=== PATIENT | male | born 1980 | race Caucasian/White ===

== ENCOUNTER 2017-05-19 23:37 | Emergency (ER) | payer OTHER ==
[~2017-05-19] VITALS: Ht 180.3 cm; Wt 88.5 kg
[2017-05-20 00:39] LABS: Acetaminophen < 2.0 ug/mL (10-30); Salicylate < 1.7 mg/dL (2.8-20.0)
[2017-05-20] MEDS ORDERED: HYDROmorphone HCL 2 MG/ML VL IV ONE (01:15)
[2017-05-20] MEDS ORDERED: ONDANSETRON HCL 4 MG/2 ML VIAL IV ONE (01:15)
[2017-05-20] MEDS ORDERED: TETANUS-DIPTH-ACEL PERTUSSIS 0.5ML SYRG IM ONE (01:30)
[2017-05-20 03:01] VITALS: BP 151/89
== END 2017-05-20 03:47 | disposition left against medical advice (07) ==
LOC: ER 23:49
DX: S01.21XA Laceration without foreign body of nose, initial encounter (principal); Z53.21 Procedure and treatment not carried out due to patient leaving prior to being seen by health care provider; Y09 Assault by unspecified means; Y93.89 Activity, other specified; Y92.89 Other specified places as the place of occurrence of the external cause
CPT/HCPCS: 36415; 70450; 70486; 73130; 80307; 80320; 80329; 90471; 90715; 96374; 96375